=== PATIENT | female | born 1965 | race Caucasian/White ===

== ENCOUNTER 2024-12-29 09:17 | Outpatient (CLI) | payer MEDICAID ==
--- NOTE | 2024-12-29 11:07 | RADIOLOGY REPORT ---
CLINICAL HISTORY: PERSONAL HISTORY OF MALIGNANT NEOPLASM OF BREAST TECHNIQUE: CTA of the abdomen and pelvis was performed with IV contrast. 100 mL of Omnipaque 350 was administered intravenously. This exam was performed according to our departmental dose optimization program. Up-to-date CT equipment and radiation dose reduction techniques are utilized as appropriate. CTDI 32.5 DLP 1670 COMPARISON: None FINDINGS: Abdomen/Pelvis: The spleen, pancreas, adrenal glands, kidneys, liver, bladder, and uterus are unremarkable. Gallbladder is absent. The abdominal aorta is normal in course and caliber. There are no significant atherosclerotic calcifications. The celiac, superior mesenteric, bilateral renal, and inferior mesenteric arteries are widely patent. The bilateral external iliac artery demonstrates beaded appearance. This findings on coronal images There is no free intraperitoneal air or fluid. There is no enlarged abdominal or pelvic lymph node. There is no bowel wall thickening or dilatation. The appendix is normal. There is colonic diverticulosis, moderate in the sigmoid segment. There is diastasis recti with a tiny fat containing umbilical hernia. Other: The imaged lower thorax demonstrates left mastectomy. There are mild atelectatic changes at both lung bases. there is a tiny hiatal hernia. No acute osseous abnormality is evident. IMPRESSION: Left mastectomy. No CT evidence for recurrent or metastatic disease in the abdomen or pelvis. Cholecystectomy. Colonic diverticulosis. Appearance of the bilateral extra likely representing fibromuscular dysplasia.
== END 2024-12-29 23:59 | disposition home or self-care (01) ==
LOC: RAD 09:17
PROVIDERS: ATTEND Plastic Surgery
DX: K57.30 Diverticulosis of large intestine without perforation or abscess without bleeding (principal); Z85.3 Personal history of malignant neoplasm of breast; K44.9 Diaphragmatic hernia without obstruction or gangrene; Z90.12 Acquired absence of left breast and nipple
CPT/HCPCS: 74174; Q9967